=== PATIENT | female | born 2000 | race African-American/Black ===

== ENCOUNTER 2021-11-16 07:27 | Emergency (ER) | payer MEDICAID ==
[~2021-11-16] VITALS: Ht 154.9 cm; Wt 48.0 kg
[2021-11-16] MEDS ORDERED: ONDANSETRON 4MG ODT PO ONE (09:30)
[2021-11-16] MEDS ORDERED: ACETAMINOPHEN 325MG TABLET PO ONE (09:30)
[2021-11-16] MEDS ORDERED: IBUPROFEN 400MG TABLET PO ONE (10:00)
[2021-11-16] MEDS ORDERED: IBUP-2028 MT (10:19)
[2021-11-16] MEDS ORDERED: TOPUD PO (10:19)
[2021-11-16] MEDS ORDERED: KEPP500 MT (10:20)
[2021-11-16] MEDS ORDERED: ONDA4TAB5 MT (10:20)
[2021-11-16 10:40] VITALS: BP 126/58
== END 2021-11-16 10:49 | disposition home or self-care (01) ==
LOC: ER 07:37
DX: G40.909 Epilepsy, unspecified, not intractable, without status epilepticus (principal); S06.0X0A Concussion without loss of consciousness, initial encounter; X58.XXXA Exposure to other specified factors, initial encounter; Y93.89 Activity, other specified; Y92.89 Other specified places as the place of occurrence of the external cause; Y99.8 Other external cause status; F12.10 Cannabis abuse, uncomplicated
CPT/HCPCS: 70450; 99284; Q0162

== ENCOUNTER 2023-05-24 16:40 | Emergency (ER) | payer MEDICAID ==
[~2023-05-24] VITALS: Ht 154.9 cm; Wt 48.0 kg
[~2023-05-24 16:40] MED LIST: IBUP-2028 MT; KEPP500 MT; ONDA4TAB5 MT; TOPUD PO
[2023-05-24 18:48] VITALS: BP 94/63; PULSE 66; RESP 18; TEMP 98.7; O2SAT 100
== END 2023-05-24 19:33 | disposition left against medical advice (07) ==
LOC: ER 16:40
DX: Z53.21 Procedure and treatment not carried out due to patient leaving prior to being seen by health care provider (principal)
CPT/HCPCS: 99281

== ENCOUNTER 2023-10-29 20:44 | Emergency (ER) | payer MEDICAID ==
[~2023-10-29] VITALS: Ht 162.6 cm; Wt 50.0 kg
[2023-10-29 20:49] VITALS: BP 135/80; PULSE 90; RESP 16; TEMP 98.3; O2SAT 100
== END 2023-10-30 00:21 | disposition home or self-care (01) ==
LOC: ER 20:44
DX: G40.909 Epilepsy, unspecified, not intractable, without status epilepticus (principal); F12.10 Cannabis abuse, uncomplicated; Z91.148 Patient's other noncompliance with medication regimen for other reason
CPT/HCPCS: 99291

== ENCOUNTER 2023-11-15 12:28 | Emergency (ER) | payer MEDICAID ==
[~2023-11-15] VITALS: Ht 165.1 cm; Wt 64.0 kg
[2023-11-15 12:51] VITALS: BP 117/77; PULSE 89; RESP 16; TEMP 98.9; O2SAT 100
== END 2023-11-15 19:22 | disposition home or self-care (01) ==
LOC: ER 12:28
DX: R56.9 Unspecified convulsions (principal); F12.90 Cannabis use, unspecified, uncomplicated
CPT/HCPCS: 99283

== ENCOUNTER 2024-03-22 23:29 | Emergency (ER) | payer MEDICAID ==
[~2024-03-22] VITALS: Ht 157.5 cm; Wt 50.0 kg
[2024-03-22 23:31] VITALS: TEMP 98.2; O2SAT 98
[2024-03-23] MEDS: SODIUM CHLORIDE 0.9% 1,000 ML IV ONE (00:37)
[2024-03-23] MEDS: LEVETIRACETAM 500MG PREMIX 100 ML IV ONE (00:37)
[2024-03-23 01:09] LABS: BASOPHILS % 0.5 % (0.0-2.0); EOSINOPHILS % 3.3 % (0.0-5.0); HEMATOCRIT. 39.2 % (36.0-48.0); HEMOGLOBIN. 13.2 g/dL (12.0-16.0); LYMPHOCYTES % 37.4 % (20.0-50.0); MEAN CORPUSCULAR HEMOGLOBIN 33.1 pg (28.0-32.0); MEAN CORPUSCULAR HGB CONC 33.7 g/dL (31.0-37.0); MEAN CORPUSCULAR VOLUME 98.2 fL (81.0-99.0); MEAN PLATELET VOLUME 8.7 fl (7.4-10.4); MONOCYTES % 8.3 % (2.0-8.0); NEUTROPHILS % 50.5 % (40.0-76.0); PLATELET 198 x1000/uL (130-400); RED BLOOD CELL COUNT 3.99 mill/uL (4.2-5.4); RED CELL DISTRIBUTION WIDTH 13.3 % (11.6-14.6); WHITE BLOOD COUNT 4.7 x1000/uL (4.5-11.0)
[2024-03-23 01:13] LABS: CHLORIDE 107 mEq/L (98-107); POTASSIUM 3.5 mEq/L (3.5-5.1); SODIUM 141 mEq/L (136-145)
[2024-03-23 01:14] LABS: CARBON DIOXIDE 28 mEq/L (21-32)
[2024-03-23 01:19] LABS: CREATININE 0.5 mg/dL (0.6-1.0); GLUCOSE 78 mg/dL (70-105)
[2024-03-23 01:20] LABS: UREA NITROGEN BLOOD < 5 mg/dL (9-23)
[2024-03-23 01:29] LABS: HCG SCREEN NEGATIVE
[2024-03-23] MEDS ORDERED: KEPP500 MT (04:38)
[2024-03-23 05:02] VITALS: BP 117/72; PULSE 74; RESP 12
== END 2024-03-23 05:03 | disposition home or self-care (01) ==
LOC: ER 23:29
DX: R56.9 Unspecified convulsions (principal); F12.10 Cannabis abuse, uncomplicated
CPT/HCPCS: 36415; 99284; 80048; 84703; 85025; 96365; 96366; J1953; J7030; Z7610

== ENCOUNTER 2025-03-13 01:52 | Emergency (ER) | payer MEDICAID ==
[~2025-03-13] VITALS: Ht 157.5 cm; Wt 55.0 kg
[2025-03-13 02:16] VITALS: BP 115/83; PULSE 100; RESP 18; TEMP 36.7; O2SAT 98
== END 2025-03-13 04:01 | disposition left against medical advice (07) ==
LOC: ER 01:52
DX: R07.9 Chest pain, unspecified (principal); Z53.21 Procedure and treatment not carried out due to patient leaving prior to being seen by health care provider
CPT/HCPCS: 93005

== ENCOUNTER 2025-08-02 01:47 | Emergency (ER) | payer MEDICAID ==
[~2025-08-02] VITALS: Ht 162.6 cm; Wt 70.0 kg
[2025-08-02 02:03] VITALS: O2SAT 99
[2025-08-02] MEDS: SODIUM CHLORIDE 0.9% 1,000 ML IV ONE (02:26)
[2025-08-02] MEDS: ONDANSETRON HCL 4MG/2ML INJ IV ONE (02:26)
[2025-08-02 02:55] LABS: BASOPHILS % 0.2 % (0.0-2.0); EOSINOPHILS % 0.8 % (0.0-5.0); HEMATOCRIT. 37.9 % (36.0-48.0); HEMOGLOBIN. 12.6 g/dL (12.0-16.0); LYMPHOCYTES % 12.2 % (20.0-50.0); MEAN PLATELET VOLUME 9.5 fl (7.4-10.4); MONOCYTES % 6.2 % (2.0-8.0); NEUTROPHILS % 80.6 % (40.0-76.0); PLATELET 173 x1000/uL (130-400); RED BLOOD CELL COUNT 3.81 mill/uL (4.2-5.4); RED CELL DISTRIBUTION WIDTH 12.0 % (11.6-14.6)
[2025-08-02 03:09] LABS: CREATININE 0.6 mg/dL (0.6-1.0); INR 1.0
[2025-08-02 03:10] LABS: UREA NITROGEN BLOOD 12 mg/dL (9-23)
[2025-08-02 03:11] LABS: ASPARTATE AMINOTRANSFERASE 104 IU/L (<34)
[2025-08-02 03:12] LABS: BILIRUBIN DIRECT 0.2 mg/dL (<=3.0); BILIRUBIN TOTAL 0.6 mg/dL (0.1-1.0); PHOSPHORUS 2.5 mg/dL (2.5-4.9); PROTEIN TOTAL 7.0 g/dL (6.0-8.3)
[2025-08-02 03:13] LABS: HCG SCREEN NEGATIVE
[2025-08-02] MEDS ORDERED: ONDA4TAB50 MT (04:25)
[2025-08-02] MEDS ORDERED: PROT40 MT (04:25)
[2025-08-02] MEDS: PANTOPRAZOLE SODIUM 40 MG/VIAL IV NR (04:34)
[2025-08-02 04:41] VITALS: BP 124/80; PULSE 106; RESP 18; TEMP 36.7; O2SAT 100
[2025-08-02] MEDS: IOHEXOL-300 100 ML BOTTLE ONE (04:46)
== END 2025-08-02 04:46 | disposition home or self-care (01) ==
LOC: ER 01:47 → CMPBEDREQ 08:01
DX: K29.70 Gastritis, unspecified, without bleeding (principal); F11.90 Opioid use, unspecified, uncomplicated; F10.20 Alcohol dependence, uncomplicated; Z79.899 Other long term (current) drug therapy
CPT/HCPCS: 80076; 80048; 80320; 84703; 83690; 83735; 84100; 85025; 85610; 85730; 36415; 71045; 74177; 96361; 96374; 96375; 99285; Q9967; J2405; J2470; J7030; G0480

== ENCOUNTER 2025-10-13 04:30 | Emergency (ER) | payer MEDICAID ==
[~2025-10-13] VITALS: Ht 162.6 cm; Wt 62.0 kg
[~2025-10-13 04:30] MED LIST changes: +ONDA4TAB50 MT; +PROT40 MT
[2025-10-13 04:36] VITALS: O2SAT 99
[2025-10-13 05:22] LABS: BASOPHILS % 0.5 % (0.0-2.0); EOSINOPHILS % 1.5 % (0.0-5.0); HEMATOCRIT. 43.4 % (36.0-48.0); HEMOGLOBIN. 13.6 g/dL (12.0-16.0); LYMPHOCYTES % 18.9 % (20.0-50.0); MEAN PLATELET VOLUME 8.8 fl (7.4-10.4); MONOCYTES % 6.6 % (2.0-8.0); NEUTROPHILS % 72.5 % (40.0-76.0); PLATELET 249 x1000/uL (130-400); RED BLOOD CELL COUNT 4.54 mill/uL (4.2-5.4); RED CELL DISTRIBUTION WIDTH 13.1 % (11.6-14.6)
[2025-10-13 05:37] LABS: CREATININE 0.8 mg/dL (0.6-1.0)
[2025-10-13 05:38] LABS: UREA NITROGEN BLOOD 6 mg/dL (9-23)
[2025-10-13 06:58] LABS: PROTEIN TOTAL 8.0 g/dL (6.0-8.3)
[2025-10-13 07:00] LABS: ASPARTATE AMINOTRANSFERASE 341 IU/L (<34); BILIRUBIN DIRECT 0.2 mg/dL (<=3.0); BILIRUBIN TOTAL 0.5 mg/dL (0.1-1.0)
[2025-10-13 07:04] LABS: B-HCG QUANTITATIVE < 1 mIU/mL (<6)
[2025-10-13 07:15] LABS: INR 1.0
[2025-10-13 07:42] LABS: HCG SCREEN NEGATIVE
[2025-10-13 09:30] VITALS: BP 98/52; PULSE 65; RESP 14; TEMP 36.8; O2SAT 99
== END 2025-10-13 09:40 | disposition home or self-care (01) ==
LOC: ER 04:30
DX: R10.30 Lower abdominal pain, unspecified (principal); N93.9 Abnormal uterine and vaginal bleeding, unspecified; Z79.899 Other long term (current) drug therapy; Z83.3 Family history of diabetes mellitus
CPT/HCPCS: 36415; 76830; 76856; 80048; 80076; 84702; 84703; 85025; 86850; 86900; 99285